=== PATIENT | male | born 1995 | race Caucasian/White ===

== ENCOUNTER 2018-10-15 00:47 | Emergency (ER) | payer OTHER ==
--- NOTE | 2018-10-15 01:00 | ER Report ---
History and Physical Time Seen By MD: 01:00 HPI/YAS CHIEF COMPLAINT: Ibuprofen overdose HISTORY OF PRESENT ILLNESS: This is a 23-year-old male. Brought to the ER tonight by friends. He states that on Tuesday evening at 1600 hrs. he took 2 bottles of ibuprofen, estimating about 180 tablets, 200 mg each. This would be 36 g. Patient's intent was to kill himself. He is having some epigastric abdominal pain and left upper quadrant abdominal pain. Pain worsens with eating or drinking. No blood in the stool or melena. No emesis or hematemesis. He does have a prior suicide attempt in the past, attempted overdose. Recently moved here from [place], recently out of the , multiple relationship problems, living with friends right now. Still feeling suicidal. Allergies: Coded Allergies: No Known Drug Allergies (Unverified , 10/15/18) Home Meds No Active Prescriptions or Reported Meds Reviewed Nurses Notes: Yes Constitutional Vital Sign - Last 24 Hours 10/15/18 10/15/18 10/15/18 10/15/18 00:52 00:57 01:00 01:02 Temp 98.3 Pulse 91 89 85 Resp 24 26 16 B/P (MAP) 150/105 157/98 (117) Pulse Ox 97 96 96 O2 Delivery Room Air Room Air Room Air 10/15/18 10/15/18 10/15/18 10/15/18 01:07 01:12 01:17 01:22 Pulse 78 84 72 81 Resp 17 21 15 19 Pulse Ox 94 95 96 94 O2 Delivery Room Air Room Air Room Air Room Air Intake and Output 10/14/18 10/14/18 10/15/18 15:00 23:00 07:00 Intake Total 1120 ml Balance 1120 ml Physical Exam General Appearance: The patient is alert. No acute distress. Eyes: Pupils are equal, round. Reactive to light. No pallor, injection or icterus. Extraocular movements are intact. ENT: Mucous membranes are moist. Normal oral mucosa. Posterior oropharynx is normal. Neck: Supple and non tender. Respiratory: Lungs are clear to auscultation. Cardiovascular: Regular rate and rhythm. No murmurs, gallops or rubs. Normal capillary refill. Gastrointestinal: Abdomen is soft, there is some tenderness in the epigastric and left upper quadrant area. No rebound or guarding. Nondistended. No masses or organomegaly. Normal active bowel sounds. No costovertebral angle tenderness with percussion. Neurological: Alert and oriented x3. Skin: Warm and dry. No rashes. Musculoskeletal: Patient does have some pain in the low and mid back, diffuse that he states is due to scoliosis. No focal pain. Extremities are nontender. DIFFERENTIAL DIAGNOSIS: After history and physical exam, differential diagnosis was considered for patient with suicide attempt 2 days ago, stating large amount of ibuprofen as an overdose. He is having some epigastric and left upper quadrant pain, likely due to irritation from the NSAIDs. Medical Decision Making Data Points Result Diagram: 10/15/18 0059 10/15/18 0059 Laboratory Hematology Test 10/15/18 00:53 10/15/18 00:59 Urine Color Yellow Urine Clarity Clear Urine pH 5.0 pH (4.8-9.5) Urine Specific Pillager 1.019 Urine Protein Negative mg/dL (NEGATIVE) Urine Glucose (UA) Negative mg/dL (NEGATIVE) Urine Ketones Trace mg/dL (NEGATIVE) Urine Blood Negative (NEGATIVE) Urine Nitrite Negative (NEGATIVE) Urine Bilirubin Negative (NEGATIVE) Urine Urobilinogen Negative mg/dL (0.2-1.9) Urine Leukocyte Esterase Negative (NEGATIVE) Urine RBC <1 /HPF (0-2/HPF) Urine WBC 2 /HPF (0-5/HPF) Urine Squamous Epithelial Cells None /LPF (</=FEW) Urine Bacteria Negative /HPF (NONE-FEW) Urine Mucus Few /HPF (NONE-FEW) Urine Opiates Screen Negative Urine Barbiturates Screen Negative Ur Tricyclic Antidepressants Screen Negative Urine Phencyclidine Screen Negative Urine Amphetamines Screen Negative Urine Benzodiazepines Screen Negative Urine Cocaine Screen Negative Urine Cannabinoids Screen Negative Red Blood Count 6.51 M/uL (4.00-5.60) Mean Corpuscular Volume 78.9 fL (80.0-96.0) Mean Corpuscular Hemoglobin 26.0 pg (26.0-33.0) Mean Corpuscular Hemoglobin Concent 33.0 g/dL (32.0-36.0) Red Cell Distribution Width 13.8 % (11.5-14.5) Mean Platelet Volume 9.1 fL (7.2-11.1) Neutrophils (%) (Auto) 58.6 % (39.4-72.5) Lymphocytes (%) (Auto) 31.2 % (17.6-49.6) Monocytes (%) (Auto) 8.2 % (4.1-12.4) Eosinophils (%) (Auto) 0.8 % (0.4-6.7) Basophils (%) (Auto) 1.2 % (0.3-1.4) Nucleated RBC Relative Count (auto) 0.1 /100WBC Neutrophils # (Auto) 5.8 K/uL (2.0-7.4) Lymphocytes # (Auto) 3.1 K/uL (1.3-3.6) Monocytes # (Auto) 0.8 K/uL (0.3-1.0) Eosinophils # (Auto) 0.1 K/uL (0.0-0.5) Basophils # (Auto) 0.1 K/uL (0.0-0.1) Nucleated RBC Absolute Count (auto) 0.00 K/uL Prothrombin Time 14.6 seconds (12.0-14.4) Prothromb Time International Ratio 1.14 Activated Partial Thromboplast Time 35 seconds (23-35) Sodium Level 141 mmol/L (137-145) Potassium Level 3.4 mmol/L (3.5-5.0) Chloride Level 101 mmol/L (98-107) Carbon Dioxide Level 27 mmol/L (22-30) Blood Urea Nitrogen 10 mg/dl (9-21) Creatinine 1.20 mg/dl (0.66-1.25) Glomerular Filtration Rate Calc > 60.0 Random Glucose 93 mg/dl (75-110) Calcium Level 9.3 mg/dl (8.4-10.2) Magnesium Level 2.1 mg/dl (1.7-2.2) Total Bilirubin 0.4 mg/dl (0.2-1.3) Aspartate Amino Transf (AST/SGOT) 45 U/L (0-35) Alanine Aminotransferase (ALT/SGPT) 40 U/L (0-56) Alkaline Phosphatase 75 U/L (0-126) Total Protein 8.7 g/dl (6.3-8.2) Albumin 5.1 g/dl (3.5-5.0) Salicylates Level < 10 mg/L Salicylate Last Dose Date unk Acetaminophen Level < 10 ug/ml Serum Alcohol < 10 mg/dl Chemistry Test 10/15/18 00:53 10/15/18 00:59 Urine Color Yellow Urine Clarity Clear Urine pH 5.0 pH (4.8-9.5) Urine Specific Pillager 1.019 Urine Protein Negative mg/dL (NEGATIVE) Urine Glucose (UA) Negative mg/dL (NEGATIVE) Urine Ketones Trace mg/dL (NEGATIVE) Urine Blood Negative (NEGATIVE) Urine Nitrite Negative (NEGATIVE) Urine Bilirubin Negative (NEGATIVE) Urine Urobilinogen Negative mg/dL (0.2-1.9) Urine Leukocyte Esterase Negative (NEGATIVE) Urine RBC <1 /HPF (0-2/HPF) Urine WBC 2 /HPF (0-5/HPF) Urine Squamous Epithelial Cells None /LPF (</=FEW) Urine Bacteria Negative /HPF (NONE-FEW) Urine Mucus Few /HPF (NONE-FEW) Urine Opiates Screen Negative Urine Barbiturates Screen Negative Ur Tricyclic Antidepressants Screen Negative Urine Phencyclidine Screen Negative Urine Amphetamines Screen Negative Urine Benzodiazepines Screen Negative Urine Cocaine Screen Negative Urine Cannabinoids Screen Negative White Blood Count 9.8 k/uL (4.5-11.0) Red Blood Count 6.51 M/uL (4.00-5.60) Hemoglobin 16.9 g/dL (14.0-18.0) Hematocrit 51.3 % (42.0-52.0) Mean Corpuscular Volume 78.9 fL (80.0-96.0) Mean Corpuscular Hemoglobin 26.0 pg (26.0-33.0) Mean Corpuscular Hemoglobin Concent 33.0 g/dL (32.0-36.0) Red Cell Distribution Width 13.8 % (11.5-14.5) Platelet Count 337 K/uL (150-450) Mean Platelet Volume 9.1 fL (7.2-11.1) Neutrophils (%) (Auto) 58.6 % (39.4-72.5) Lymphocytes (%) (Auto) 31.2 % (17.6-49.6) Monocytes (%) (Auto) 8.2 % (4.1-12.4) Eosinophils (%) (Auto) 0.8 % (0.4-6.7) Basophils (%) (Auto) 1.2 % (0.3-1.4) Nucleated RBC Relative Count (auto) 0.1 /100WBC Neutrophils # (Auto) 5.8 K/uL (2.0-7.4) Lymphocytes # (Auto) 3.1 K/uL (1.3-3.6) Monocytes # (Auto) 0.8 K/uL (0.3-1.0) Eosinophils # (Auto) 0.1 K/uL (0.0-0.5) Basophils # (Auto) 0.1 K/uL (0.0-0.1) Nucleated RBC Absolute Count (auto) 0.00 K/uL Prothrombin Time 14.6 seconds (12.0-14.4) Prothromb Time International Ratio 1.14 Activated Partial Thromboplast Time 35 seconds (23-35) Glomerular Filtration Rate Calc > 60.0 Calcium Level 9.3 mg/dl (8.4-10.2) Magnesium Level 2.1 mg/dl (1.7-2.2) Total Bilirubin 0.4 mg/dl (0.2-1.3) Aspartate Amino Transf (AST/SGOT) 45 U/L (0-35) Alanine Aminotransferase (ALT/SGPT) 40 U/L (0-56) Alkaline Phosphatase 75 U/L (0-126) Total Protein 8.7 g/dl (6.3-8.2) Albumin 5.1 g/dl (3.5-5.0) Salicylates Level < 10 mg/L Salicylate Last Dose Date unk Acetaminophen Level < 10 ug/ml Serum Alcohol < 10 mg/dl Coagulation Test 10/15/18 00:59 Prothrombin Time 14.6 seconds Prothromb Time International Ratio 1.14 Activated Partial Thromboplast Time 35 seconds Toxicology Test 10/15/18 00:53 10/15/18 00:59 Urine Opiates Screen Negative Urine Barbiturates Screen Negative Ur Tricyclic Antidepressants Screen Negative Urine Phencyclidine Screen Negative Urine Amphetamines Screen Negative Urine Benzodiazepines Screen Negative Urine Cocaine Screen Negative Urine Cannabinoids Screen Negative Salicylates Level < 10 mg/L Salicylate Last Dose Date unk Acetaminophen Level < 10 ug/ml Serum Alcohol < 10 mg/dl Urinalysis Test 10/15/18 00:53 Urine Color Yellow Urine Clarity Clear Urine pH 5.0 pH (4.8-9.5) Urine Specific Pillager 1.019 Urine Protein Negative mg/dL (NEGATIVE) Urine Glucose (UA) Negative mg/dL (NEGATIVE) Urine Ketones Trace mg/dL (NEGATIVE) Urine Blood Negative (NEGATIVE) Urine Nitrite Negative (NEGATIVE) Urine Bilirubin Negative (NEGATIVE) Urine Urobilinogen Negative mg/dL (0.2-1.9) Urine Leukocyte Esterase Negative (NEGATIVE) Urine RBC <1 /HPF (0-2/HPF) Urine WBC 2 /HPF (0-5/HPF) Urine Squamous Epithelial Cells None /LPF (</=FEW) Urine Bacteria Negative /HPF (NONE-FEW) Urine Mucus Few /HPF (NONE-FEW) EKG/Imaging EKG Interpretation 12 lead EKG: Rhythm: normal sinus rhythm, rate 71 [place]: normal QRS: normal ST segments: normal ED Course/Re-evaluation Clinical Indication for ER IV: Hydration, IV Access ED Course Labs are unremarkable. Normal BUS and with slight bump in creatinine to 1.20 but a GFR greater than 60. Normal anion gap and normal electrolytes. Normal platelets, H&H, and coags. Negative drug screen and negative salicylates and acetaminophen. At this point, I do not see any life-threatening problems. We will need to watch to see if there is any problems such as ulcer disease but no evidence of GI bleeding at this time. I called and spoke with Rosalba Bose, psychiatric nurse practitioner, who accepted the patient to behavioral health. I have given the patient a dose of Protonix 80 mg IV tonight. Decision to Disposition Date: Oct 15, 2018 Decision to Disposition Time: 01:55 Depart Departure Latest Vital Signs Vital Signs Date Time Temp Pulse Resp B/P (MAP) Pulse Ox O2 Delivery O2 Flow Rate FiO2 10/15/18 01:22 81 19 94 Room Air 10/15/18 01:00 157/98 (117) 10/15/18 00:52 98.3 Impression: Primary Impression: Intentional ibuprofen overdose Additional Impression: Suicidal ideation Condition: Condition Unchanged Disposition: XFER TO [facility] New Scripts No Active Prescriptions or Reported Meds Problem Qualifiers Primary Impression: Intentional ibuprofen overdose Encounter type: initial encounter Qualified Codes: T39.312A - Poisoning by propionic acid derivatives, intentional self-harm, initial encounter KAE LARA MD Oct 15, 2018 01:00
[2018-10-15] MEDS ORDERED: NS(*) 0.9% 1000 ML BAG 1,000 ML IV ONE (01:04)
[2018-10-15 01:25] LABS: PLATELET COUNT, AUTOMATED 337 K/uL (150-450)
[2018-10-15 01:27] LABS: INR 1.14
[2018-10-15 01:30] VITALS: BP 146/81
[2018-10-15] MEDS ORDERED: PANTOPRAZOLE SOD(*)40 MG VIAL 80 MG in NS(*) 0.9% 100 ML BAG 100 ML IVPB ONE (01:50)
--- NOTE | 2018-10-15 03:20 | EKG ---
FACILITY: PATIENT NAME: FRANCISCO VALIENTE : [id number] MR: [id number] V: [id number] EXAM DATE: ORDERING PHYSICIAN: KAE LARA TECHNOLOGIST: RAFY Dugan Reason : IBUPROFEN OD Blood Pressure : / mmHG Vent. Rate : 071 BPM Atrial Rate : 071 BPM P-R Int : 162 ms QRS Dur : 088 ms QT Int : 364 ms P-R-T Axes : 055 039 022 degrees QTc Int : 395 ms Sinus rhythm No acute appearing findings No previous ECGs available Confirmed by MANPREET TAYLOR ([id number]) on 10/15/2018 5:26:18 AM Referred By: Confirmed By:MANPREET TAYLOR
== END 2018-10-15 03:32 ==
LOC: ER 01:17
DX: T39.312A Poisoning by propionic acid derivatives, intentional self-harm, initial encounter (principal); R45.851 Suicidal ideations; R10.13 Epigastric pain; M54.5 Low back pain; M54.6 Pain in thoracic spine; R10.12 Left upper quadrant pain; R79.89 Other specified abnormal findings of blood chemistry
CPT/HCPCS: 80305; 80320; 80329; 81001; 83735; 84443; 85025; 85610; 85730; 93005; 96361; 96374; 99284; C9113; J7030; J7050; 82040; 82247; 82310; 82374; 82435; 82565; 82947; 84075; 84132; 84155; 84295; 84450; 84460; 84520

== ENCOUNTER 2018-10-15 03:10 | Inpatient (IN) | payer SELFPAY ==
[~2018-10-15] VITALS: Ht 171.4 cm; Wt 79.4 kg
[2018-10-15 04:55] VITALS: BP 126/79
[2018-10-15 06:33] LABS: PLATELET COUNT, AUTOMATED 288 K/uL (150-450)
[2018-10-15 10:20] VITALS: BP 112/78
[2018-10-15] MEDS: MAG HYD/AL HYD/SIMETH 30ML UDC PO PRN ×2 (12:42→16:37)
[2018-10-15 20:58] VITALS: BP 134/92
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
[2018-10-16 04:11] VITALS: BP 137/87
[2018-10-16 05:58] LABS: PLATELET COUNT, AUTOMATED 262 K/uL (150-450)
[2018-10-16] MEDS: FLUoxetine HCL 20 MG CAP PO SCH (10:33)
[2018-10-16 13:01] VITALS: BP 140/96
--- NOTE | 2018-10-16 14:52 | BHS Progress Note ---
[facility] - Subjective Progress Notes Subjective Pt seen in treatment team-- his father was unable to join by speaker phone due to being at work. Pt reports he feels "tired," and says depression is a bit better today. Denies SI, says the last time he had SI was last evening. He denies any thoughts of harming self in hospital. Still very negative and hopele ss, feels "alone, I can't rely on anyone." Describes a lot of initial insomnia, but does not want to try any medication for this. He is feeling better today in terms of less-to-no abdominal pain. We discussed pro's and cons of starting an antidepressant, and he agrees to trial of prozac-- we did discuss two possible side effects of increase in SI or sexual side effects. Will work on DBT skills to improve stress tolerance, and to decrease self harm. Continue Prozac, continue treatment plan. Suicidal Ideation: Resolving Homicidal Ideation: None [facility] - Objective Physical Exam Vital Signs Vital Signs 10/16/18 10/16/18 04:11 13:01 Temp 99.0 Pulse 70 Resp 15 B/P (MAP) 140/96 (111) Pulse Ox 93 O2 Delivery Room Air Muscle Strength and Tone: WNL Gait and Station: Steady [facility] Medications Reviewed: Side Effects, Benefits of Medication, Risks Mental Status Exam General Appearance: Casual, Cooperative, Polite, Good Interaction Speech: Clear, Spontaneous, Normal Rate Mood: Dysthmic/Depressed Affect: Calm, Sad Thought Process: Organized, Logical, Goal Directed Thought Content: Suicidal Ideation (resolving); No Homicidal Ideation, No Delusions, No Auditory Halllucinations, No Visual Hallucinations, No Thought Broadcasting, No Ideas of Reference, No Obsessions, No Compulsions, No Other Sensorium: Clear Cognition: Alert & Oriented-Person, Alert & Oriented-Place, Alert & Oriented- Time, Lggwj-Akcucyjn-Dthtnvzqh Memory: Immediate, Recent, Remote Intelligence: Average Insight Judgment: Fair Result Diagram: 10/16/1848 10/16/1848 [facility] Assessment and Plan [id number] Encounter Date: Oct 16, 2018 Hwfo-gr-[id number] Encounter Time: 09:00 [facility] Plan: Admit to Unit, Necessary Precautions, Individual/Group Therapy, Admin/Titrate Meds, Educate Patient Tobacco Medications: Started Multpiple Antipsychotics Used: No Problems: (1) Major depressive disorder (2) Intentional ibuprofen overdose Status: Acute CARLOS LANGFORD MD Oct 16, 2018 14:52
[2018-10-16 21:35] VITALS: BP 141/87
[2018-10-17 06:23] VITALS: BP 143/93
[2018-10-17] MEDS: FLUoxetine HCL 20 MG CAP PO SCH (08:28)
--- NOTE | 2018-10-17 21:11 | BHS Progress Note ---
[facility] - Subjective Progress Notes Subjective Pt seen with team in conference room with his father on speaker phone. Pt denies any SI today and mood is improving. He has been participating fully in groups and individual therapies. He is tolerating prozac well-- yesterday he felt blunted and slowed down but today he feels more alert. His father was supportive to pt. in some ways, but also made it clear that he doesn't "believe in" depression. We tried to educate him about biological basis and rationale for medications-- he listened politely and did express support for his son and desire to maintain good relationship. If pt continues to tolerate medication and remains free of SI then we will hope for tentative DC tomorrow-- we are arranging outpatient follow up at [facility]. Suicidal Ideation: None Homicidal Ideation: None [facility] - Objective Physical Exam Vital Signs Vital Signs 10/17/18 06:23 Temp 98.8 Pulse 81 Resp 15 B/P (MAP) 143/93 (110) Pulse Ox 95 O2 Delivery Room Air Muscle Strength and Tone: WNL Gait and Station: Steady [facility] Medications Reviewed: Side Effects, Benefits of Medication, Risks Mental Status Exam General Appearance: Casual, Well Groomed, Cooperative, Polite, Good Interaction Speech: Clear, Spontaneous, Normal Rate Mood: Dysthmic/Depressed Affect: Calm, Sad, Other (overall depressed but brighter than yesterday) Thought Process: Organized, Logical, Goal Directed Thought Content: Suicidal Ideation (resolving); No Homicidal Ideation, No Delusions, No Auditory Halllucinations, No Visual Hallucinations, No Thought Broadcasting, No Ideas of Reference, No Obsessions, No Compulsions, No Other Sensorium: Clear Cognition: Alert & Oriented-Person, Alert & Oriented-Place, Alert & Oriented- Time, Iycsm-Heppqtcn-Mfyheyjwn Memory: Immediate, Recent, Remote Intelligence: Average Insight Judgment: Fair Result Diagram: 10/16/1854710/16/18547 [facility] Assessment and Plan Gotn-ey-Szia Encounter Date: Oct 17, 2018 Exzx-tn-Awkv Encounter Time: 09:00 [facility] Plan: Admit to Unit, Necessary Precautions, Individual/Group Therapy, Admin/Titrate Meds, Educate Patient Tobacco Medications: Started Multpiple Antipsychotics Used: No Problems: (1) Major depressive disorder (2) Intentional ibuprofen overdose Status: Acute CARLOS LANGFORD MD Oct 17, 2018 21:11
[2018-10-17 21:28] VITALS: BP 153/94
[2018-10-18 06:12] VITALS: BP 135/78
[2018-10-18] MEDS: FLUoxetine HCL 20 MG CAP PO SCH (08:11)
[2018-10-18] MEDS ORDERED: FLUO-177 PO (11:08)
[2018-10-18 13:16] VITALS: BP 138/86
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
== END 2018-10-18 15:02 | disposition home or self-care (01) | DRG 918 ==
LOC: BHS 03:10
PROVIDERS: ADMIT Nurse Practitioner Psychiatric/Mental Health; ATTEND Nurse Practitioner Psychiatric/Mental Health
DX: T39.312A Poisoning by propionic acid derivatives, intentional self-harm, initial encounter (principal); F33.1 Major depressive disorder, recurrent, moderate; R45.851 Suicidal ideations; Z72.0 Tobacco use
CPT/HCPCS: 36415; 82040; 82247; 82310; 82374; 82435; 82565; 82947; 84075; 84132; 84155; 84295; 84450; 84460; 84520; 85025

== ENCOUNTER 2019-02-12 14:36 | Emergency (ER) | payer SELFPAY ==
[~2019-02-12 14:36] MED LIST: FLUO-177 PO
--- NOTE | 2019-02-12 14:40 | ER Report ---
History and Physical Time Seen By MD: 14:37 HPI/ROS Was coming off of the basketball court, pushed of a little on his left leg to run off the court, and felt a strain in his left lower calf/achilles area. Able to ambulate and still with full ROM. No other injuries. Remainder of the 14 system rev: Yes Allergies: Coded Allergies: No Known Drug Allergies (Unverified , 10/15/18) Home Meds Reported Medications Fluoxetine Hcl (FLUOXETINE HCL) 20 Mg Capsule, 20 MG PO QAM, CAPSULE 10/18/18 Hx Smoking: Yes Smoking Status: Current: Some Days Smoker Exposure to Second Hand Smoke?: No Hx Substance Use Disorder: No Hx Alcohol Use: Yes Constitutional Vital Sign - Last 24 Hours 02/12/19 14:39 Temp 97.7 Pulse 93 Resp 20 B/P (MAP) 149/97 Pulse Ox 100 O2 Delivery Room Air Physical Exam General appearance: Alert no distress. Left LE: No swelling or bony TTP. Mild TTP at the proximal achilles tendon. Normal ROM. No hematoma. n/v in tact. DIFFERENTIAL DIAGNOSIS: After history and physical exam differential diagnosis was considered for fracture, Achilles tendon rupture, muscle strain or rupture. Medical Decision Making ED Course/Re-evaluation ED Course Fracture on x-ray. No evidence of facial tendon rupture. Could have mild strain of the gastroc muscle or Achilles tendon. No need for further intervention. I counseled the patient as far as using ice to the effected area and performing stretching exercises. The patient voices understanding and will follow accordingly. Decision to Disposition Date: Feb 12, 2019 Decision to Disposition Time: 15:49 Depart Departure Latest Vital Signs Vital Signs Date Time Temp Pulse Resp B/P (MAP) Pulse Ox O2 Delivery O2 Flow Rate FiO2 02/12/19 14:39 97.7 93 20 149/97 100 Room Air Impression: Primary Impression: Strain of calf muscle Condition: Improved Disposition: HOME OR SELF-CARE Patient Instructions: Achilles Tendinitis (ED) Problem Qualifiers Primary Impression: Strain of calf muscle Encounter type: initial encounter Laterality: left Qualified Codes: S86.812A - Strain of other muscle(s) and tendon(s) at lower leg level, left leg, initial encounter CB KENNEDY MD Feb 12, 2019 14:40
[2019-02-12 15:30] VITALS: BP 143/95
--- NOTE | 2019-02-12 15:32 | RADIOLOGY IMAGING REPORT ---
FACILITY: [facility] - [place] PATIENT NAME: Clark Bonilla : 1995 MR: [id number] V: [id number] EXAM DATE: ORDERING PHYSICIAN: CB KENNEDY TECHNOLOGIST: [place] [facility] [place] Clark Bonilla : 1995 Visit/Account:[id number] Date of Sevice: 02/12/2019 Exam type: ANKLE 3 VIEW MIN LEFT History: pain in achilles/ankle Comparison: None. Findings: There is no evidence of acute fracture-dislocation involving the left ankle. Appears to be very subt le soft tissue swelling present about the ankle joint. No significant arthritic change seen. IMPRESSION: 1. No gross evidence of acute fracture-dislocation involving the left ankle. There is minimal soft tissue swelling present Report Dictated By: Grace Oliveira MD at 02/12/2019 3:23 PM Report E-Signed By: Grace Oliveira MD at 02/12/2019 3:25 PM WSN:[id number]
== END 2019-02-12 15:57 | disposition home or self-care (01) ==
LOC: ER 15:05
DX: S86.812A Strain of other muscle(s) and tendon(s) at lower leg level, left leg, initial encounter (principal)
CPT/HCPCS: 99283